=== PATIENT | female | born 1975 | race Caucasian/White ===

== ENCOUNTER 2024-12-20 15:59 | Emergency (ER) | payer OTHER, SELFPAY ==
--- OUTSIDE RECORDS SUMMARY | 2016-01-13 07:43 | XMS_ITS | Continuity of Care Document ---
Author Organization [facility] Address [address] [address] [place] [address] Phone Care Team Providers Care Copying Machine Repairer Name Role Phone Link Ramirez HORTON Unavailable Unavailable Advance Directives Directive Yes / No Effective Date File Name No Information Encounters Encounter Description Practice Location Reason(s) For Visit Diagnoses Date Provider Providers Copied on Encounter [facility], [address] [address], [place], [place], [id number], [place] tel:[phone] Pediatric Clinic No Information Link MD Guzmán. [address] [facility], [facility] [address], [place], [id number], [place]. tel:[phone] Referring Provider: Melanie Morales DIAL BRUSHER, [address] [facility] [address], [address]. tel:[phone] Family History Family Member Type Diagnosis Age At Onset No Information Payers Payer name Insurance type Covered alliance party ID Authoriza tion(s) No Information Social History Type Description Quantity Date Captured Comments Sex Female Smoking Status No Information Chief Complaint And Reason For Visit No Information Reason For Referral Reason For Referral No Information History Of Present Illness Encounter Date Complaint History Of Prese nt Illness No Information Functional Status Date Functional Assessmen t No Information Instructions Date Instruction Additional Infor mation No Information Assessments Type Assessment Date No Information Patient Care Teams Name Effective Dates (start - stop) Status Members No Information
[2024-12-20 16:19] VITALS: BP 136/87; PULSE 85; RESP 18; TEMP 36.8; O2SAT 99; BMI 27.6
--- NOTE | 2024-12-20 16:42 | ED_ITS ---
HPI - Extremity Injury (Lower) General Time Seen by Provider: 16:42 Date Seen: 12/20/24 Chief Complaint: Extremity Pain/Injury, Lower Stated Complaint: R big toe injury Time Seen by Provider: 12/20/24 16:00 Source: patient and RN notes reviewed Mode of arrival: ambulatory Limitations: no limitations History of Present Illness HPI Narrative: This 49-year-old female is coming in with injury to her right big toenail. She accidentally hit it on a picnic table. She worries that she is prediabetic and could be at risk for infection. Pain at this time is minimal, it did bleed and was initially painful. She did ice and elevate it which has helped. Nothing else was injured. Related Data Allergies Allergy/AdvReac Type Severity Reaction Status Date / Time cephalexin Allergy Intermediate Hives Verified 12/20/24 16:18 Review of Systems Narrative: As per HPI. PFSH PFS Social History Smoking Status: Never smoker How often do you have a drink containing alcohol: never How often do you have six or more drinks on one occasion: Never AUDIT-C Alcohol total score: 0 Non-prescribed substance use: denies use Exam Const: Vital Signs, click to edit/add: Vital Signs - 24 hr 12/20/24 16:19 12/20/24 17:45 Temperature 98.3 F Pulse Rate [Pulse Oximeter] 85 72 Respiratory Rate 18 16 Blood Pressure [Ri ght Upper Arm] 136/87 152/82 H Pulse Oximetry 99 98 Oxygen Delivery Me thod Room Air Room Air This 49-year-old female is alert, interactive, no apparent distress. Inspection of her right great toenail shows a pain to toenail but you can see blood underneath the distal toenail. It looks as though the nail has completely lifted off the lateral aspect and maybe at the base of the nail plate. The medi al proximal toenail to about 1/2 to 2[address] over along the base of the toenail does seem to be intact and attached. She does not have tenderness when I palpate along the metatarsophalangeal joint, the interphalangeal joints. She is maybe minimally tender along the tuft and distal toe. The does not seem to be significant ecchymosis or swelling and no active bleeding. She most definitely has caused an injury lifting some but not all of the toenail off the base. Documenting provider has reviewed patient's vital signs: yes Course Course ED Course: Have reviewed with her that I do think we should x-ray the toe to make sure that there is no underlying distal phalanx or tuft fracture come would regional climate change analyst with use of antibiotics as I would consider written open fraction given the nail has lifted off. We have discussed options, her nail is most definitely lifted the majority of the way off but absolutely appears to be intact along the medial to mid nail bed, laterally there may be lost of continuity of the nail to the nail bed. I have discussed that we can anesthetize the toe, I can further examine and see how far the damage extends. They understand if I do do this that I may cause as the medial nail plate to lift off. We certainly can attempt to try to realign the nail back on the nail bed using sutures. I did discuss potentially just removing the whole nail for comfort. Either of these treatments may are may not give her normal nail growth back. Have reviewed with her that we will not know if her nail is going to grow out normally with any of these options. She ultimately has opted to just leave the nail as it is and attempt to bandage in taper it down. She does understand she may ultimately lose this nail but it certainly seems to be significantly attached along the medial to mid nail base. Reevaluation(s) Time of Reevaluation #1: 17:50 Reevaluation #1: Have reviewed with patient that her x-rays on my preliminary review are not showing fracture. The radiologist has not over-read them yet. I certainly can let her know the results if there is a fracture that I missed. We will call in antibiotics. She is going to see if she wants a postop shoe, otherwise she will disuse sandals that sounds like they have a good foot bed at home. Staff is going to clean the toe off, will bandage with some bacitracin and put a bandage around this toe and hold the nail in place. We have went over all the options again for removal, further exploration and stitches to reattached the nail along that lateral plate. She is opting to just bandage the toe in leave the nail as it is. I certainly think this is reasonable. She does understand that ultimately this nail may lift off and I cannot tell her if there will be normal growth. Vital Signs Vital signs: Initial Vital Signs Temperature 98.3 F 12/20/24 16:19 Temperature Source Temporal Artery Scan 12/20/24 16:19 Pulse Rate 85 12/20/24 16:19 Respiratory Rate 18 12/20/24 16:19 Blood Pressure 136/87 12/20/24 16:19 Blood Pressure Mean 103 12/20/24 16:19 Pulse Oximetry 99 12/20/24 16:19 Oxygen Delivery Method Room Air 12/20/24 16:19 Vital Signs Temperature 98.3 F 12/20/24 16:19 Pulse Rate 85 12/20/24 16:19 Respiratory Rate 18 12/20/24 16:19 Blood Pressure 136/87 12/20/24 16:19 Pulse Oximetry 99 12/20/24 16:19 Oxygen Delivery Method Room Air 12/20/24 16:19 Temperature 98.3 F 12/20/24 16:19 Pulse Rate 72 12/20/24 17:45 Respiratory Rate 16 12/20/24 17:45 Blood Pressure 152/82 H 12/20/24 17:45 Pulse Oximetry 98 12/20/24 17:45 Oxygen Delivery Method Room Air 12/20/24 17:45 MDM - Extremity Injury (Lower) Imaging Data XR toe: Attestation: I have reviewed the pertinent imaging results. My impression: I do not appreciate any fracture of this toe. Radiologist's impression: Patient: JESSICA PARSONS Facility:?[facility] Patient ID:?[id number] Site Patient ID:?[id number]. Site :?[id number] Study:?XRay-Extremity Right GREAT TOE 3 VIEW-12/20/2024 5:33:19 PM Ordering Physician:Pratik Christianson Final Report: INDICATION: Injury COMPARISON: None. TECHNIQUE: Three views right great toe. FINDINGS: No acute or healing fracture. Normal joint alignment. Joint spaces are normal. No focal bone lesions. Normal bone mineralization. Soft tissues are normal. No foreign body. IMPRESSION: Normal right great toe radiographs. Dictated by Toya aFtima MD @ 12/20/2024 5:53:49 PM (Electronic Signature) Discharge Plan Discharge Clinical Impression: Injury of great toenail Patient Disposition: Home, Self-Care Condition: Stable Instructions: Nail Avulsion (ED) Additional Instructions: You may shower and bathe as usual. Would recommend using a bandage around the nail to protect it and tell it as either read here did back down or is growing out adequately. I do not know if the toenail will grow normally again but it is certainly still well attached along the inside base of the nail. Bandaging and dressing this to protect the toenail from bumping it will help keep it along the base of the toe. If you have further concerns, can follow-up with your primary care provider in clinic. It is fine to use Tylenol or ibuprofen for any discomfort. You may want to try to elevate this foot as you are able to for the next few days, will help decrease discomfort. Can use ice if needed for discomfort. May need to wear sandals or shoes that do not compress this toenail for a while. Activity Level: Activity as Tolerated Follow Up/Referrals: Provider,Not a Local [Primary Care Provider, Family Practice] Stand Alone Forms: MyHealth Info Instructions
--- NOTE | 2024-12-20 16:50 | CRLHL7_ITS ---
For Patients: As a result of the Cures Act, medical imaging exams and procedure reports are released immediately into your electronic medical record. You may view this report before your referring provider. If you have questions, please contact your health care provider. INDICATION: Injury COMPARISON: None. TECHNIQUE: Three views right great toe. FINDINGS: No acute or healing fracture. Normal joint alignment. Joint spaces are normal. No focal bone lesions. Normal bone mineralization. Soft tissues are normal. No foreign body. IMPRESSION: Normal right great toe radiographs. Dictated by Toya Fatima MD @ 12/20/2024 5:53:49 PM (Electronically Signed)
--- OUTSIDE RECORDS SUMMARY | 2024-12-20 17:16 | XMS_ITS | Clinical Summary ---
Author Organization [facility] Address [address] [place] [address] Care Team Providers Care Centrifuge Separator Operator Name Role Phone Pavan Acosta MD Primary Care Provider Ann Marie Martinez MD Unavailable [phone] Allergies Active Allergy Reactions Criticality Noted Date Comments Cephalexin Hives 08/14/2018 Medications b complex vitamins (VITAMIN B COMPLEX) capsule Take 1 capsule. by mouth. B complex 1 twice weekly 0 0 Active Calcium carbonate (OYSTERSHELL CALCIUM) 500 mg tablet Take 1 tablet by mouth 2 times daily with meals. 0 0 Active melatonin 1 mg Tab Take 1 tablet by mouth at bedtime if needed for Sleep. 0 0 Active multivitamin (MVI) tablet Take 1 tablet by mouth once daily. 0 9 Active ascorbic acid, vitamin C, (VITAMIN C) 1,000 mg tablet Take 2,000 mg by mouth once daily. 0 9 Active cholecalciferol (VITAMIN D) 1,000 unit capsule Take 5,000 units by mouth once daily. Saturday, Saturday, Saturday, , Saturday 0 9 Active docusate (COLACE) 100 mg capsule Take 100 mg by mouth two times daily. 0 0 Active calcium/magnesi um/zinc (Calcium-Magnes uium-Zinc) 333-133-5 mg tablet Take 1 Tablet by mouth. 4 Active Tsivb-3-YPZ-EPA -Fish Oil 1,000 mg (120 mg-180 mg) cap Take 1 Capsule (1,000 mg) by mouth. 4 Active medication order composer Life extention sea iodine 1000 mcg 4 Active vitamin K2 100 mcg cap Take by mouth. 4 Active iron,carbonyl-v itamin C (Vitron-C) 65 mg iron- 125 mg Delayed-Release tablet Take 1 Tablet by mouth once daily. 4 Active medication order composer Aged Garlic supplement 600 twice daily 5 Active escitalopram oxalate 5 mg tabletIndicatio ns:Adjustment disorder with depressed mood Take 1 Tablet (5 mg) by mouth once daily in the morning. 30 Tablet 5 Active Active Problems Problem Noted Date Diagnosed Date Hyperlipidemia 09/25/2023 Overview (09/25/2023): CT cardiac calcium score (2022)= ZERO Elevated DHEA 09/25/2023 History of anemia 09/25/2023 Elevated vitamin B12 level 09/25/2023 Depression, major, single episode, mild 04/21/20 20 Generalized anxiety disorder 04/21/2020 Prediabetes 04/21/2019 Iron deficiency anemia due to chronic blood loss 04/20/2019 Vitamin D deficiency 04/20/2019 Adjustment disorder with depressed mood 04/20/20 19 Plantar wart of left foot 02/15/2010 Encounters Date Type Department Care Team Description 10/05/2024 10:40 AM CDT Office Visit [facility] [address] [place] [address] Pavan Acosta MD Follow Up (lab) 10/05/2024 Travel 09/30/2024 Travel 09/24/2024 Travel from Last 3 Months Immunizations Immunization Administration Dates Next Due Influenza, IIV3 (Age 6-35 mos) 04/09/2009 Influenza, IIV3 (Age >=3 years) 04/20/2008 Td (Age >=7 Years) 04/21/2020 Tdap 02/11/2010 Family History Medical History Relation Name Comments Other Brother 1 Samson Minimal change disease Stroke Brother 1 Samson Thyroid Disease Brother 1 Samson Kidney cancer Brother 2 Wilm's tumor Kidney disease Brother 3 Christopher Stroke Brother 3 Christopher Cancer Father Cancer-colon Father Dementia Maternal Grandmother Diabetes Maternal Grandmother Alcoholism Mother Depression Mother Heart Disease Mother Lung cancer Mother Osteoporosis Mother Stroke Mother x2 Dementia Paternal Grandmother Relation Name Status Comments Brother 1 Samson Alive Brother 2 Brother 3 Christopher Father Maternal Grandmother Mother Paternal Grandmother Social History Tobacco Use Types Packs/Day Years Used Date Smoking Tobacco: Never Smokeless Tobacco: Never Tobacco Cessation:Counseling Given: Yes Alcohol Use Standard Drinks/Week Comments Yes 0 (1 standard drink = 0.6 oz pur e alcohol) PHQ-2 Answer Date Recorded PHQ-2 TOTAL SCORE 0 10/05/2024 Social Connections Answer Date Recorded Do you often feel lonely or isolated from those around you? 0 09/30/2023 Financial Resource Strain Answer Date R ecorded Difficulty of Paying Living Expenses 3 09/25/2023 Difficulty of Paying Living Expenses Not on file 09/25/2023 Food Insecurity Answer Date Recorded Do you worry your food will run out before you are able to buy more? 1 09/30/2023 Transportation Needs Answer Date Record ed Does lack of transportation keep you from medica l appointments? 1 09/30/2023 Does lack of transportation keep you from work, meetings or getting things that you need? 1 09/30/2023 Housing Stability Answer Date Recorded What is your housing situation today? 1 09/30/2023 Utilities Answer Date Recorded Do you have trouble paying f or utilities (for example, heat, electricity, water, phone)? 1 09/30/2023 Comments No Sex and Gender Information Value Date Recorded Sex Assigned at Not on file Legal Sex Female 10:43 AM CATEGORY ANALYST Gender Identity Not on file Sexual Orientation Not on file Obstetrics History Last Filed Vital Signs Vital Sign Reading Time Taken Comments Blood Pressure 124/68 10/05/2024 10:51 AM CDT Pulse 100 06/11/2024 8:06 PM CATEGORY ANALYST Temperature 38.1 C (100.6 F) 06/11/2024 8:06 PM CATEGORY ANALYST Respiratory Rate 20 06/11/2024 8:06 PM CATEGORY ANALYST Oxygen Saturation 97% 06/11/2024 8:06 PM CATEGORY ANALYST Inhaled Oxygen Concentration - - Weight 68 kg (150 lb) 10/05/2024 10:51 AM CDT Height 158.8 cm (5' 2.5) 10/05/2024 10:51 AM CD T Body Mass Index 27 10/05/2024 10:51 AM CDT Plan of Treatment Upcoming Encounters Date Type Department Care Team (Late st Contact Info) Description 01/05/2025 10:00 AM CDT Orders Only [facility] [address] [place] [address] Lab, [place] 01/20/2025 1:00 PM CDT Office Visit [facility] [address] [address] Pavan Acosta MD [address] [place] [address] [address] Health Maintenance Due Date Last Done Comments HIV for age 15-65 1990 Hepatitis C screening for age 18-79 1993 Hepatitis B series for 19+ (1 of 3 - 19+ 3-dose series) 1994 COVID-19 vaccine series ( season) 2024 Influenza Vaccine (#1) 2025 04/09/2009, 2007 Mammogram for age 45-75 03/30/2025 03/30/20 24 (Verified in Care Everywhere or Patient Record), 05/21/2023 (Verified in Care Everywhere or Patient Record), 11/02/2020, Additional history exists BMI (ht and wt on same day) for age 18+ 10/05/2025 10/05/2024, 09/25/2023, 04/21/2020, Additional history exists Depression screening for age 12+ 10/05/2025 10/05/2024, 03/30/2024, 05/12/2020, Additional history exists Colonoscopy through age 75 05/19/202605/19 (Completed outside of [facility]) Pap test for age 21-65 06/22/2026 2 (Completed outside of [facility]), 03/25/2017 (Completed outside of [facility]) Lipids for age 45-75 09/15/2029 09/15/2024, 03/24/2024, 04/20/2019 Tetanus booster 04/21/2030 04/21/2020, 02/11/2010 Pneumococcal series for age 6-49 Aged Out No longer eligible based on patient's age to complete this topic Procedures Procedure Name Priority Date/Time Associated Diagnosis Comments LIPID PANEL W REFLEX MEASURED LDL Routine 09/15/2024 10:16 AM CDT Hyperlipidemia, unspecified hyperlipidemia type XR MAMMO BILAT SCREENING Routine 11/02/2020 12:00 AM CDT Encounter for screening for malignant neoplasm of breast, unspecified screening modality from Last 3 Months or Most Recently Relevant to Health Maintenance Results * (ABNORMAL) LIPID PANEL W REFLEX MEASURED LDL (09/15/2024 10:16 AM CDT) CHOLESTEROL, TOTAL 168 <200 mg/dL [facility] HDL CHOLESTEROL 49(L) > OR = 50 mg/dL [facility] TRIGLYCERIDES 133 <150 mg/dL [facility] LDL-CHOLESTEROL 96 mg/dL (calc) [facility] Comment: Reference range: <100 Desirable range <100 mg/dL for primary prevention; <70 mg/dL for patients with CHD or diabetic patients with > or = 2 CHD risk factors. LDL-C is now calculated using the Reinier-Juan Ramon calculation, which is a validated novel method providing better accuracy than the Friedewald equation in the estimation of LDL-C. Reinier SANCHEZ et al. SANDEEP. 2013;310(19): 1183-3688 (http://education.betaworks.Twigmore/faq/HEG156) CHOL/HDLC RATIO 3.4 <5.0 (calc) [facility] NON HDL CHOLESTEROL 119 <130 mg/dL (calc) [facility] Comment: For patients with diabetes plus 1 major ASCVD risk factor, treating to a non-HDL-C goal of <100 mg/dL (LDL-C of <70 mg/dL) is considered a therapeutic option. Blood BLOOD SPECIMEN / Unknown 09/15/2024 10:16 AM CDT 09/15/2024 10:16 AM CDT Narrative [facility] - 09/16/2024 3:56 AM CDT FASTING:YES FASTING: YES Pavan Acosta MD CHEMISTRY Final R esult [facility] [address] [place] [address], [place] [phone] [facility] [address] [place] [address] * XR MAMMO BILAT SCREENING (11/02/2020 12:00 AM CDT) Anatomical Region Laterality Modality BREASTS, Breast Left, Breast Right Bilateral Mammography An Estes DO MAMMO Final Resul t from Last 3 Months or Most Recently Relevant to Health Maintenance Insurance [facility] Care Teams Centrifuge Separator Operator Relationship Specialty Start Date End Date Pavan Acosta MD [address] [place] [id number] PCP - General Family Practice 09/25/23 Ann Marie Martinez MD [address] [address] Obstetrics and Gynecology 09/25/23
--- OUTSIDE RECORDS SUMMARY | 2024-12-20 17:16 | XMS_ITS | Clinical Summary ---
Author Organization [facility] Address [address] [place] [address] Care Team Providers Care Electrician Maintenance Name Role Phone Doctor, None MD Unavailable Unavailable Bernardino Vargas MD Primary Care Provider [phone] Allergies No known active allergies Medications MULTIVITAMIN CHEW OR None Entered Active Immunizations Immunization Administration Dates Next Due TDAP Vaccine (Adacel) 02/11/2010 Family History Medical History Relation Comments Colon Cancer Father Lung Cancer Mother Relation Status Comments Father Mother Social History Tobacco Use Types Packs/Day Years Used Date Smoking Tobacco: Never Alcohol Use Standard Drinks/Week Comments Not Asked 0 (1 standard drink = 0.6 oz pur e alcohol) Adolescent Education Answer Date Record ed Getting School Help Needed Not on file 03/07 Comments No Sex and Gender Information Value Date Recorded Sex Assigned at Not on file Legal Sex Female 3:[address]MINISTRATIVE ENGINEER Gender Identity Not on file Sexual Orientation Not on file Last Filed Vital Signs Vital Sign Reading Time Taken Comments Blood Pressure 124/78 02/11/2010 5:34 PM CDT Pulse 72 02/11/2010 5:34 PM CDT Temperature 36.7 C (98 F) 02/11/2010 5:34 PM CDT Respiratory Rate - - Oxygen Saturation - - Inhaled Oxygen Concentration - - Weight 59.9 kg (132 lb) 08/20/2007 9:00 AM CDT Height 157.5 cm (5' 2) 08/20/2007 9:00 AM CDT Body Mass Index 24.14 08/20/2007 9:00 AM CDT Plan of Treatment Health Maintenance Due Date Last Done Comments ADVANCE CARE PLANNING 1975 ANNUAL REVIEW OF HM ORDERS 1975 CT COLONOGRAPHY 1975 FIT 1975 FLEX SIG 1975 sDNA (Cologuard) 1975 HIV SCREENING 1990 HEPATITIS C SCREENING 1993 HEPATITIS B VACCINE (1 of 3 - 19+ 3-dose series) 1994 DIABETES SCREENING 11/07/2010 11/08/2007, 0 11/07/2007, 11/07/2007, Additional history exists LIPID 2015 YEARLY PREVENTIVE VISIT 04/21/2021 04/21/2020 COVID-19 VACCINE (1 - season) 2024 PHQ-2 (once per calendar year) 2024 PAP 06/22/2024 06/22/2021, 06/22/2021 INFLUENZA VACCINE (#1) 2025 04/09/2009, 2007 ZOSTER VACCINE (1 of 2) 2025 MAMMO SCREENING 03/30/2026 03/30/2024, 05/10, 02/01/2023, Additional history exists DTAP/TDAP/TD VACCINE (3 - Td or Tdap) 04/21/2030 04/21/2020, 02/11/2010 COLONOSCOPY 05/24/2031 05/24/2021 COLORECTAL CANCER SCREENING 05/24/2031 HPV VACCINE Aged Out No longer eligi ble based on patient's age to complete this topic MENINGITIS VACCINE Aged Out No longer eligible based on patient's age to complete this topic PNEUMOCOCCAL VACCINE: PEDIATRICS (0 to 5 YEARS) AND AT-RISK PATIENTS (6 to 49 YEARS) Aged Out No longer eligible based on patient's age to complete this topic Procedures Procedure Name Priority Date/Time Associated Diagnosis Comments MA SCREENING BILATERAL W/ LAN Routine 03/30/2024 11:14 AM CDT Visit for screening mammogram GLUCOSE BY METER Routine 11/08/2007 7:12 AM CDT from Last 3 Months or Most Recently Relevant to Health Maintenance Results * MA Screen Bilateral w/Lan (03/30/2024 11:14 AM CDT) Anatomical Region Laterality Modality Breast Bilateral Mammography Impressions 03/30/2024 1:25 PM CDT IMPRESSION: ACR BI-RADS Category 1: Negative BREAST CANCER SCREENING RECOMMENDATION: Routine yearly mammography beginning at age 40 or as discussed with your provider. The results and recommendations of this examination will be communicated to the patient. Yamil Euceda MD Narrative 03/30/2024 1:25 PM CDT BILATERAL FULL FIELD DIGITAL SCREENING MAMMOGRAM WITH TOMOSYNTHESIS Performed on: 03/30/24 Compared to: 02/01/2023, 01/15/2022, and 11/02/2020 Technique: This study was evaluated with the assistance of Computer-Aided Detection. Breast Tomosynthesis was used in interpretation. Findings: The breasts are heterogeneously dense, which may obscure small masses. There is no radiographic evidence of malignancy. Bernardino Vargas MD IMG MAMMOGRAPHY ORDERABLES Final Result * Glucose by meter (11/08/2007 7:12 AM CDT) Glucose 84 60 - 99 mg/dL [facility]IS[facility] 11/08/2007 7:12 AM CDT 11/09/2007 12:30 AM CDT Elian Oconnor MD [facility] Final Result MISYS from Last 3 Months or Most Recently Relevant to Health Maintenance Insurance [facility] Care Teams Electrician Maintenance Relationship Specialty Start Date End Date Bernardino Vargas MD [address] [address] PCP - General Internal Medicine 11/26/22 Wilberto Jimenez MD 04/16/14
--- OUTSIDE RECORDS SUMMARY | 2024-12-20 17:16 | XMS_ITS | Encounter Summary ---
Author Organization [place] Address [facility] [place] [address] Care Team Providers Care Head Machine Feeder Name Role Phone DoctorWilberto MD Unavailable Unavailable Bernardino Vargas MD Primary Care Provider [phone] Encounter Details Date Type Department Care Team (Late st Contact Info) Description 03/27/2023 [facility] Diabetes Education [id number] [facility] [place] [id number] [facility] [address] [place], [place] [address] Social History Tobacco Use Types Packs/Day Years Used Date Smoking Tobacco: Never Alcohol Use Standard Drinks/Week Comments Not Asked 0 (1 standard drink = 0.6 oz pur e alcohol) Adolescent Education Answer Date Record ed Getting School Help Needed Not on file 03/07 Comments No Sex and Gender Information Value Date Recorded Sex Assigned at Not on file Legal 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
--- OUTSIDE RECORDS SUMMARY | 2024-12-20 17:16 | XMS_ITS ---
Author Organization [place] Address [address] [place] [id number] Care Team Providers Care Pathology Specialist Name Role Phone Doctor, None MD Unavailable Unavailable Bernardino Vargas MD Primary Care Provider Diabetes Self-Management Education Status:Identified (Enrolling) Start date:03/07/2023 Continued Care and Services Coordination
[2024-12-20 17:45] VITALS: BP 152/82; PULSE 72; RESP 16; O2SAT 98
== END 2024-12-20 18:23 | disposition home or self-care (01) ==
PROVIDERS: Emergency Provider Family Medicine
DX: S90.211A Contusion of right great toe with damage to nail, initial encounter (principal)
CPT/HCPCS: 73660; 99282; 99283